=== PATIENT | female | born 1995 | race Caucasian/White ===

== ENCOUNTER 2022-05-05 08:50 | Emergency (ER) | payer BC ==
[2022-05-05] MEDS ORDERED: Dexamethasone 10 MG/ML VIAL ONE (09:48)
[2022-05-05] MEDS ORDERED: Ketorolac Tromethamine 30 MG/ML VIAL ONE (09:58)
== END 2022-05-05 10:14 | disposition home or self-care (01) ==
LOC: ERS 08:50
DX: J02.0 Streptococcal pharyngitis (principal)
CPT/HCPCS: 96372; 99282; J1100; J1885